=== PATIENT | female | born 1970 | race Caucasian/White ===

== ENCOUNTER 2019-10-16 12:06 | Emergency (ER) | payer OTHER, MEDICAID ==
--- NOTE | 2019-10-16 12:56 | XRAY Report ---
PROCEDURE: Chest 1 View X-Ray INDICATIONS: Chest Pain TECHNIQUE: One view of the chest was acquired. COMPARISON: None FINDINGS: Surgical changes and devices: None. Lungs and pleura: No pleural effusions or pneumothorax. Lungs are clear. Mediastinum: Mediastinal contours appear normal. Heart size is normal. Bones and chest wall: No suspicious bony lesions. Overlying soft tissues appear unremarkable. IMPRESSION: No acute cardiopulmonary disease process. Reviewed by: Vicenta Goncalves MD, PhD on 10/16/2019 12:55 PM PDT Approved by: Vicenta Goncalves MD, PhD on 10/16/2019 12:55 PM PDT Station ID: [id number]
[2019-10-16 13:06] LABS: BASOPHILS # (AUTO) 0.1 10^3/uL (0.0-0.1); BASOPHILS % (AUTO) 1.5 %; EOSINOPHILS # (AUTO) 0.2 10^3/uL (0.0-0.7); HGB - HEMOGLOBIN 14.3 g/dL (12.0-16.0); LYMPHOCYTES % (AUTO) 30.2 %; MEAN CORPUSCULAR HEMOGLOBIN 31.3 pg (27.0-31.0); MEAN CORPUSCULAR HGB CONC 32.9 g/dL (32.0-36.0); MEAN CORPUSCULAR VOLUME 95.2 fL (81.0-99.0); MEAN PLATELET VOLUME 10.8 fL (7.9-10.8); MONOCYTES # (AUTO) 0.4 10^3/uL (0.0-1.0); MONOCYTES % (AUTO) 6.1 %; NEUTROPHILS # (AUTO) 3.9 10^3/uL (1.5-6.6); NEUTROPHILS % (AUTO) 58.9 %; PLT - PLATELET COUNT 303 10^3/uL (130-450); RED BLOOD COUNT 4.57 10^6/uL (4.20-5.40); WHITE BLOOD COUNT 6.6 x10^3/uL (4.8-10.8)
[2019-10-16] MEDS ORDERED: diphenhydrAMINE INJ 50 MG/ML VIAL IVP STA (13:11)
[2019-10-16] MEDS ORDERED: CHERRY SYRUP 10 ML UDC PO ONE (13:11)
[2019-10-16] MEDS ORDERED: DEXAMETHASONE 10 MG/ML VIAL PO STA (13:11)
[2019-10-16 13:21] LABS: ALBUMIN 4.4 g/dL (3.2-5.5); ALBUMIN/GLOBULIN RATIO 1.5 (1.0-2.2); BILIRUBIN,TOTAL 0.9 mg/dL (0.2-1.0); CALCIUM 9.2 mg/dL (8.5-10.3); CREATININE 0.7 mg/dL (0.4-1.0); TOTAL PROTEIN 7.4 g/dL (6.7-8.2)
--- NOTE | 2019-10-16 13:22 | ED Physician Documentation ---
History of Present Illness - Stated complaint Stated Complaint: FEET/LEG SWELLING - Chief complaint Chief Complaint: General - History obtained from History obtained from: Patient - History of Present Illness Timing: How many days ago (3) - Additonal information Additional information: 49-year-old female reports she had severe epigastric pain and was seen at urgent care in [place] at which time she was put on Cipro and Nexium for duodenitis found on a CT scan. The patient indicates that following this she began to develop some whole-body swelling and she has now discontinued medication. She is in here today for whole-body swelling. She feels her face is swollen her legs and arms are swollen. She has been into another urgent care in follow-up and was told that she needed to exercise more. Review of Systems Constitutional: denies: Fever Eyes: denies: Decreased vision Ears: denies: Ear pain Nose: denies: Congestion Throat: denies: Sore throat Cardiac: denies: Chest pain / pressure, Palpitations Respiratory: denies: Dyspnea, Cough GI: reports: Abdominal Pain (Now resolved). denies: Nausea, Vomiting : denies: Dysuria, Frequency PD PAST MEDICAL HISTORY - Present Medications Home Medications: Ambulatory Orders Medication Instructions Recorded Confirmed Ciprofloxacin HCl [Cipro] 500 mg PO BID 10/16/19 10/16/19 Pantoprazole [Protonix] 40 mg BID 10/16/19 10/16/19 - Allergies Allergies/Adverse Reactions: Allergies Allergy/AdvReac Type Severity Reaction Status Date / Time aspirin Allergy Unknown Verified 10/16/19 12:26 fluticasone [From Flonase] Allergy Unknown Verified 10/16/19 12:26 mephobarbital [From Mebaral] Allergy Unknown Verified 10/16/19 12:26 phenobarbital Allergy Unknown Verified 10/16/19 12:26 phenytoin [From Dilantin] Allergy Unknown Verified 10/16/19 12:26 Sulfa (Sulfonamide Allergy Unknown Verified 10/16/19 12:26 Antibiotics) powder Allergy Unknown Uncoded 10/16/19 12:26 PD ED PE NORMAL - Vitals Vital signs reviewed: Yes - General General: Alert and oriented X 3, No acute distress, Well developed/nourished - HEENT HEENT: Atraumatic, PERRL, EOMI, Other (There is mild mid facial swelling noticed by the patient's friend this is not readily apparent.) - Neck Neck: Supple, no meningeal sign, No bony TTP - Cardiac Cardiac: RRR, No murmur - Respiratory Respiratory: No respiratory distress, Clear bilaterally - Abdomen Abdomen: Soft, Non tender - Back Back: No CVA TTP, No spinal TTP - Derm Derm: Normal color, Warm and dry, No rash - Extremities Extremities: No deformity, No calf tenderness / cord, Other (The lower extremities are thick the shoes are fitting obviously tight there is swelling but there is no pitting.) - Neuro Neuro: Alert and oriented X 3, 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, No motor deficit, No sensory deficit, Normal speech Eye Opening: Spontaneous Motor: Obeys Commands Verbal: Oriented GCS Score: 15 - Psych Psych: Normal mood, Normal affect Results - Vitals Vitals: Vital Signs - 24 hr 10/16/19 10/16/19 12:11 14:30 Temperature 36.3 C L Heart Rate 64 81 Respiratory 18 16 Rate Blood Pressure 145/86 H 141/88 H O2 Saturation 96 99 Oxygen O2 Source Room air - EKG (time done) 1249 Rate: Rate (enter#) (62) Ischemia: ST elevation c/w repol Compare to prior EKG: Old EKG unavailable Computer interpretation: Agree with computer - Labs Labs: Laboratory Tests 10/16/19 10/16/19 10/16/19 12:50 12:50 12:50 WBC 6.6 RBC 4.57 Hgb 14.3 Hct 43.5 MCV 95.2 MCH 31.3 H MCHC 32.9 RDW 13.0 Plt Count 303 MPV 10.8 Neut # (Auto) 3.9 Lymph # (Auto) 2.0 [place] # (Auto) 0.4 Eos # (Auto) 0.2 Baso # (Auto) 0.1 Absolute Nucleated RBC 0.00 Nucleated RBC % 0.0 Sodium 140 Potassium 4.1 Chloride 103 Carbon Dioxide 28 Anion Gap 9.0 BUN 12 Creatinine 0.7 Estimated GFR (MDRD) 90 Glucose 144 H Calcium 9.2 Total Bilirubin 0.9 AST 24 ALT 22 Alkaline Phosphatase 58 Troponin I High Sens < 2.3 L B-Natriuretic Peptide Total Protein 7.4 Albumin 4.4 Globulin 3.0 Albumin/Globulin Ratio 1.5 Lipase 31 Urine Color Urine Clarity Urine pH Ur Specific [place] Urine Protein Urine Glucose (UA) Urine Ketones Urine Occult Blood Urine Nitrite Urine Bilirubin Urine Urobilinogen Ur Leukocyte Esterase Ur Microscopic Review Urine Culture Comments 10/16/19 10/16/19 12:50 13:15 WBC RBC Hgb Hct MCV MCH MCHC RDW Plt Count MPV Neut # (Auto) Lymph # (Auto) [place] # (Auto) Eos # (Auto) Baso # (Auto) Absolute Nucleated RBC Nucleated RBC % Sodium Potassium Chloride Carbon Dioxide Anion Gap BUN Creatinine Estimated GFR (MDRD) Glucose Calcium Total Bilirubin AST ALT Alkaline Phosphatase Troponin I High Sens B-Natriuretic Peptide 109 H Total Protein Albumin Globulin Albumin/Globulin Ratio Lipase Urine Color YELLOW Urine Clarity CLEAR Urine pH 7.5 Ur Specific [place] 1.015 Urine Protein NEGATIVE Urine Glucose (UA) NEGATIVE Urine Ketones NEGATIVE Urine Occult Blood NEGATIVE Urine Nitrite NEGATIVE Urine Bilirubin NEGATIVE Urine Urobilinogen 0.2 (NORMAL) Ur Leukocyte Esterase NEGATIVE Ur Microscopic Review NOT INDICATED Urine Culture Comments NOT INDICATED PD MEDICAL DECISION MAKING - ED course Complexity details: reviewed results, re-evaluated patient, considered differential, d/w patient ED course: 49-year-old female with anasarca likely has had fluid retention related to 1 of her medications that she has stopped both of these she is given a dose of dexamethasone. Departure - Departure Disposition: 01 Home, Self Care Clinical Impression: Medication side effects, Body fluid retention Condition: Stable Instructions: ED Drug React Allergic Follow-Up: Nichole Engel MD [Primary Care Provider] - Comments: Today it appears that you have retained fluid likely as a side effect of 1 of the 2 medications you have recently begun. Do not take these medications. The recommendation today is to take Benadryl or a nonsedating antihistamine such as Gaye or Zyrtec regularly for the next 2 days. Wear compression stockings to assist in getting the fluid back out of your legs. Expect fluid retention to resolve over the next week. Discharge Date/Time: 10/16/19 14:31
[2019-10-16 13:48] LABS: BILIRUBIN,URINE NEGATIVE (NEGATIVE); GLUCOSE, URINE (UA) NEGATIVE (NEGATIVE); KETONES,URINE (UA) NEGATIVE (NEGATIVE); LEUKOCYTE ESTERASE, URINE NEGATIVE (NEGATIVE); NITRITE,URINE NEGATIVE (NEGATIVE); OCCULT BLOOD,URINE NEGATIVE (NEGATIVE); PH,URINE 7.5 PH (5.0-7.5); PROTEIN,URINE NEGATIVE (NEGATIVE); UROBILINOGEN,URINE 0.2 (NORMAL) E.U./dL (NORMAL)
[2019-10-16 13:51] LABS: CLARITY,URINE CLEAR (CLEAR)
[2019-10-16 14:31] VITALS: BP 141/88
== END 2019-10-16 14:31 | disposition home or self-care (01) ==
LOC: ED 12:06
DX: R60.1 Generalized edema (principal); T50.905A Adverse effect of unspecified drugs, medicaments and biological substances, initial encounter
CPT/HCPCS: 36415; 71045; 80053; 81003; 83690; 83880; 84484; 85025; 93005; 96374; 99284; A9270; J1200; 81001; 87086